=== PATIENT | female | born 1975 | race Caucasian/White ===

== ENCOUNTER 2021-11-08 23:06 | Emergency (ER) | payer MEDICAID ==
[~2021-11-08] VITALS: Ht 175.3 cm; Wt 102.3 kg
[2021-11-08 23:29] VITALS: BP 105/79
[2021-11-09] MEDS ORDERED: HYDR-3965 PO (02:07)
[2021-11-09] MEDS ORDERED: HYDROcodone/acetaminophen 5mg/325mg tablet PO ONE (02:10)
--- NOTE | 2021-11-09 02:27 | NUR ---
po med given
== END 2021-11-09 02:27 | disposition home or self-care (01) ==
LOC: ER 23:07
DX: S82.61XA Displaced fracture of lateral malleolus of right fibula, initial encounter for closed fracture (principal); M25.571 Pain in right ankle and joints of right foot; Z79.899 Other long term (current) drug therapy; W18.40XA Slipping, tripping and stumbling without falling, unspecified, initial encounter; Y93.89 Activity, other specified; Y92.89 Other specified places as the place of occurrence of the external cause; Y99.8 Other external cause status
CPT/HCPCS: 29515; 73610; 99283; A6449